=== PATIENT | female | born 1995 | race Hispanic/Latino ===

== ENCOUNTER 2023-08-01 20:57 | Emergency (ER) | payer MEDICAID, OTHER ==
[~2023-08-01] VITALS: Ht 157.5 cm; Wt 52.2 kg
[2023-08-01 21:24] LABS: BASOPHILS # (AUTO) 0.07 K/uL (0.00-0.20); BASOPHILS % (AUTO) 0.5 % (0.0-5.0); EOSINOPHILS # (AUTO) 1.09 K/uL (0.00-0.70); EOSINOPHILS % (AUTO) 8.5 % (0.0-8.0); HEMATOCRIT 40.2 % (36-48); IMMATURE GRANULOCYTE ABSOLUTE 0.04 K/uL (0-1); LYMPHOCYTES # (AUTO) 2.8 K/uL (1.0-4.8); LYMPHOCYTES % (AUTO) 22.3 % (21.0-51.0); MEAN CORPUSCULAR HEMOGLOBIN 28.6 pg (27.0-33.0); MEAN CORPUSCULAR HGB CONC 32.3 g/dL (32.0-36.0); MEAN CORPUSCULAR VOLUME 88.4 fL (79-99); MONOCYTES # (AUTO) 0.7 K/uL (0.1-1.0); MONOCYTES % (AUTO) 5.3 % (3.0-13.0); NEUTROPHILS % (AUTO) 63.1 % (40.0-77.0); PLATELET COUNT (AUTO) 262 K/uL (130-400); RED BLOOD CELL COUNT(AUTO) 4.55 MIL/uL (4.00-5.50); WHITE BLOOD COUNT (AUTO) 12.8 K/uL (4.8-10.8)
[2023-08-01 21:29] LABS: APPEARANCE,URINE CLOUDY (CLEAR); BILIRUBIN,URINE NEGATIVE (NEGATIVE); COLOR,URINE YELLOW (YELLOW); GLUCOSE, URINE (UA) NEGATIVE (NEGATIVE); HCG,QUALITATIVE URINE NEGATIVE (NEGATIVE); KETONES,URINE NEGATIVE (NEGATIVE); LEUKOCYTE ESTERASE ,URINE 25 Leu/uL (NEGATIVE); NITRATE,URINE NEGATIVE (NEGATIVE); OCCULT BLOOD,URINE SMALL (NEGATIVE); PH,URINE 6.5 (5.0-8.0); PROTEIN,URINE 10 mg/dL (NEGATIVE); UROBILINOGEN,URINE 0.2 mg/dL (0.2-1.0)
[2023-08-01 21:30] LABS: ADD UA MICROSCOPIC YES
[2023-08-01 21:32] LABS: BACTERIA,URINE RARE /HPF (None Seen); CREATININE 0.6 mg/dL (0.5-1.0); MUCUS,URINE MOD LPF (None Seen); POTASSIUM 3.9 mmol/L (3.5-5.1); SQUAMOUS EPITHELIAL CELL,UR MANY /HPF (0-2)
[2023-08-01 21:37] LABS: ALBUMIN 4.1 g/dL (3.5-5.0); BILIRUBIN,TOTAL 0.4 mg/dL (0.2-1.0); TOTAL PROTEIN, SERUM 8.4 g/dL (6.0-8.3)
[2023-08-01] MEDS: ONDANSETRON 4MG INJ IVP ONE (23:02)
[2023-08-01] MEDS: 0.9%NACL 1000ML 1,000 ML IV ONE (23:02)
[2023-08-01] MEDS: ACETAMINOPHEN 500 MG TABLET PO ONE (23:02)
[2023-08-01] MEDS: FAMOTIDINE 20MG VIAL IV ONE (23:02)
[2023-08-02] MEDS: CEFTRIAXONE 1G VIAL IVPB ONE (00:15)
[2023-08-02] MEDS: GUAIFENESIN/DEXTROMETHORPHAN 1 EACH TAB.SR.12H PO ONE (00:15)
[2023-08-02] MEDS: SOLU-MEDROL 40MG VIAL IVP ONE (01:59)
[2023-08-02 02:03] VITALS: BP 118/61; PULSE 96; RESP 16; O2SAT 100
== END 2023-08-02 02:05 | disposition home or self-care (01) ==
LOC: EDH 20:57
DX: N39.0 Urinary tract infection, site not specified (principal); D72.829 Elevated white blood cell count, unspecified; J32.9 Chronic sinusitis, unspecified
CPT/HCPCS: 99284; 80053; 85025; 81001; 81025; 36415; 96374; 96361; 96375 ×2; S0028; J7030; J2405; J0696; J2920; J3490